=== PATIENT | female | born 1980 | race Caucasian/White ===

== ENCOUNTER 2021-11-02 07:29 | Emergency (ER) | payer BC ==
[~2021-11-02] VITALS: Ht 160 cm; Wt 106.1 kg
== END 2021-11-02 10:33 | disposition home or self-care (01) ==
LOC: ED 07:29
DX: N83.202 Unspecified ovarian cyst, left side (principal)
CPT/HCPCS: 36415; 76830; 76856; 80053; 81001; 84703; 85025; 96374; 99284-25; J2405

== ENCOUNTER 2021-12-04 21:24 | Observation (INO) | payer BC ==
[~2021-12-04] VITALS: Ht 160 cm; Wt 91.4 kg
--- NOTE | ~2021-12-04 | OR ---
[facility] [place] [facility] [address] [facility] [place], [place] [address] Draft DATE OF OPERATION: 12/05/2021 SURGEON: Phyllis Mariscal DO PREOPERATIVE DIAGNOSES: 1. Left ovarian torsion. 2. Left ovarian cyst. POSTOPERATIVE DIAGNOSES: 1. Acute on chronic pelvic pain. 2. Left ovarian cyst. 3. Extensive pelvic adhesions. 4. Endometriosis of the pelvic peritoneum. PROCEDURE PERFORMED: Laparoscopic lysis of adhesions. SPOTTER: Jany Bowers DO ANESTHESIA: General. ESTIMATED BLOOD LOSS: 10 mL. SPECIMEN: None. FINDINGS: Normal external genitalia with normal clitoris, urethral meatus, bilateral Naylor's, Bartholin's. Normal vagina and cervix. On laparoscopy, normal appearing right upper quadrant and left upper quadrant. Omental adhesions to the anterior abdominal wall. Surgically absent right ovary. The right fallopian tube with filmy adhesions to the cul-de-sac and torturous in appearance. Dense adhesions of the left adnexum completely encompassing the ovary and fallopian tube including the descending colon and rectum obliterating the left ovarian fossa. Left ovarian cyst of unknown etiology, presumably endometrioma versus simple cyst. Endometriosis implants of the left abdominal side wall, the peritoneum and deep in the pelvis on the right sidewall and uterosacral ligament. The left retroperitoneum was opened in an attempt to access the ovary, but PATIENT NAME: EDISON NGUYEN OPERATIVE REPORT DATE OF : 84 REPORT #: [id number] PHYSICIAN: PHYLLIS MARISCAL DO PCP: PHYLLIS MARISCAL DO REPORT IS CONFIDENTIAL AND NOT TO BE RELEASED WITHOUT AUTHORIZATION [facility] [address] [place], [place] [address] Draft dense scarring was appreciated. Dissection was halted. Resection of omental bladder and right fallopian tube adhesions. COMPLICATIONS: None. 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 History is complicated by right oophorectomy due to ovarian torsion with pelvic adhesions in the past. The patient presented to the emergency department approximately a month earlier with similar symptoms and demonstration of an 8 cm ovarian cyst. Repeat ultrasound demonstrated approximately 5 cm simple left ovarian cyst. The patient had been scheduled for laparoscopic oophoropexy with possible ovarian cystectomy. Given acute onset of pain and symptoms consistent with ovarian torsion. Decision was made to proceed immediately to the operating room. Risks, benefits, and alternatives were discussed in detail with the patient. The patient understands and wished to proceed with procedure. TECHNIQUE: The patient was taken to the operating room where a time-out was performed to confirm correct patient, correct procedure. General anesthesia was adequately established. The patient was prepped and draped in dorsal lithotomy position with her feet in Yellofin stirrups. ICPs are running. The patient received Ancef 2 g preoperatively. No heparin was indicated. A Sewell catheter was inserted. Weighted speculum was placed in the vagina and anterior lip of the cervix was grasped with an Allis clamp. The cervix was gently dilated using Hegar dilators and a Hulka uterine manipulator was placed without difficulty. Attention was then turned to the abdomen. A 3 cm curvilinear incision was made approximately 2 cm below the umbilicus after infiltration with 0.25% Marcaine with epinephrine. The fascia was grasped with hemostats, elevated and entered sharply using Metzenbaum scissors. Stay sutures were placed on the superior and inferior portions of the incision and attempted to be opened bluntly. The peritoneum was then grasped with a tonsil clamp, elevated, and entered sharply with Metzenbaum scissors. An S retractor was used to help insert a Nguyễn operative port after palpating no adhesions below the trocar site. The pneumoperitoneum was successfully established with low opening pressures. Survey of the abdomen and pelvis was performed demonstrating a normal right upper quadrant, left upper quadrant, and omental bladder adhesions in the pelvis. The patient was then placed in the steep Trendelenburg position. Assist ports were placed; 5 mm assist port in left lower quadrant under direct visualization and an 8 mm expanding port in the right lower quadrant under direct visualization without complication. LigaSure device was used to dissect the omental adhesions at the anterior abdominal wall after ensuring that no bowel was included. The bowel was bluntly retracted cephalad PATIENT NAME: EDISON NGUYEN OPERATIVE REPORT DATE OF : 84 REPORT #: [id number] PHYSICIAN: PHYLLIS MARISCAL DO PCP: PHYLLIS MARISCAL DO REPORT IS CONFIDENTIAL AND NOT TO BE RELEASED WITHOUT AUTHORIZATION [facility] [place] [facility] [address], [place] [address] Draft exposing the pelvis and cul-de-sac. The right ovary was surgically absent and the right fallopian tube was torturous and scarred to the cul-de-sac. The bladder demonstrates dense adhesions from prior pelvic surgery. The left adnexum demonstrates dense adhesions encompassing the ovary and fallopian tube entirely involving the descending colon and rectum. The ureter was then unable to be seen due to dense adhesions and the ovarian fossa had been also completely obliterated. Survey of the deep pelvis demonstrates endometrial implants over the right uterosacral ligament as well as the right pelvic peritoneum. Also a powder-burn endometrial lesion was seen in the left abdominal sidewall near the pelvic brim. Gentle dissection was used to further evaluate the left adnexa. The left peritoneum was opened high and the pelvic wall above the adhesions and the adnexa was swept medially in an attempt to access the ovary from the retroperitoneum. A small amount of oozing was noted and dense adhesions were encountered and decision was made to abandon this approach. The cul-de-sac was again evaluated and no dissection plane was easily available, when decision was made to abandon additional dissection. Tisseel was used in the retroperitoneum to ensure hemostasis. Pneumoperitoneum was then reduced and no oozing was noted. Trocars were removed. The infraumbilical fascia was then reapproximated using 0 Vicryl in a running nonlocked manner. The skin was reapproximated using 4-0 Monocryl in a running subcuticular stitch. The Sewell catheter and Allis clamps were removed from the pelvis and the patient was taken to PACU in good and stable condition. Sponge, needle, instrument count was correct x2 at the end the procedure. Dr. Bowers was present and participated in all portions of the procedure. DO CORIE Parks/JESSEE /[id number] Copies: ~ PATIENT NAME: EDISON NGUYEN OPERATIVE REPORT DATE OF : 84 REPORT #: [id number] PHYSICIAN: PHYLLIS MARISCAL DO PCP: PHYLLIS MARISCAL DO REPORT IS CONFIDENTIAL AND NOT TO BE RELEASED WITHOUT AUTHORIZATION
--- NOTE | 2021-12-05 00:05 | NUR ---
12/05/21 0005 EvinAbby [id number]-PATIENT ARRIVED TO PACU ON 6L MASK RR EVEN REACTIVE TO VERBAL STIMULI ORIENTED TO PACU. IVF INFUSING. SR. 3 LAP SITES TO ABDOMEN CDI. 0000-PATIENT AWAKE DROWSY COUGHED NONPRODUCTIVE REPORTS " I PEED" LIZA PAD AND BRIEFS PLACED ON PATIENT. PATIENT STATING "I DON'T HURT" DENIES NAUSEA. PLACED ON RA RR EVEN 95% PATIENT ASKING FOR PHONE. DISCUSSED NOT USING IT RIGHT NOW.
--- NOTE | 2021-12-05 01:10 | NUR ---
DR LUNDBERG TO SEE PT, EXPLAINED PT VAG BLEEDING. PT DID GET UP TO VOID, ATE CRACKERS, NO NAUSEA. PT WANTING TO DISCHARGE HOME, DR LUNDBERG AGREED. PRIMARY RN IN ROOM.
--- NOTE | 2021-12-05 01:30 | NUR ---
PT TO FLOOR FROM PACU AT 0040. ORDERS RECEIVED. PT ALERT AND ORIENTED. VSS. PT DENIES PAIN OR NAUSEA. REPORTS DISCOMFORT IN LEFT HAND FROM IV. PT BEGAN TO SELF DC IV, AGREED TO LEFT STAFF ASSIST. DC'D WNL. TIP INTACT. ABD LAP SITES X 3 WITH STERI STRIPS AND BANDAIDS. RLQ SITE WEEPING SEROSANG DRAINAGE. DRESSING CHANGED SEVERAL TIMES. FOAM DRESSING PROVIDED. PT UP TO BR TO VOID 200 ML CLEAR YELLOW URINE. REPORTS VAGINAL BLEEDING WITH LIZA CARE AND SMALL AMOUNT ON LIZA PAD. DR. LUNDBERG IN TO SEE PT AND EXPLAIN CAUSE OF VAGINAL BLEEDING AND ASSESS LAP SITE. PT ANXIOUS FOR DISCHARGE HOME. DR. LUNDBERG OK'D DC. PT DECLINED DISCHARGE INSTRUCTIONS OR PRINTED EDUCATION. WHEELCHAIR RIDE PROVIDED TO FRONT OF HOSPITAL WHERE PT LEFT HOSPITAL VIA PRIVATE VEHICLE WITH ALL PERSONAL BELONGINGS.
== END 2021-12-05 01:25 | disposition home or self-care (01) ==
LOC: ED 21:24 → MS 21:26
PROVIDERS: ADMIT Obstetrics & Gynecology; ATTEND Obstetrics & Gynecology
PROC: 0UN14ZZ Release Left Ovary, Percutaneous Endoscopic Approach (ICD-10-PCS; principal; 2021-12-05)
DX: N80.3 Endometriosis of pelvic peritoneum (principal); N83.512 Torsion of left ovary and ovarian pedicle; N83.202 Unspecified ovarian cyst, left side; Z20.822 Contact with and (suspected) exposure to COVID-19; Z90.721 Acquired absence of ovaries, unilateral
CPT/HCPCS: 36415; 80053; 84703; 85025; 87502; 96374; 96375; 99285-25; G0378; J0131; J0690; J1100; J1885; J2001; J2405; J2704; J3475; U0003